=== PATIENT | male | born 1985 | race Caucasian/White ===

== ENCOUNTER 2020-08-24 19:53 | Emergency (ER) | payer OTHER, SELFPAY ==
[2020-08-24 20:04] VITALS: BP 137/93; PULSE 69; RESP 14; TEMP 36.7; O2SAT 99
--- NOTE | 2020-08-24 20:42 | ED.DIZZY ---
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 Patient was brought in via EMS, the police captain was searching home that was under suspicion for narcotics. MD elicited complaint: dizziness Severity: mild Exacerbating factors: nothing Relieving factors: nothing Related Data Home Medications Medication Instructions Recorded Confirmed No Home Medications 08/24/20 08/24/20 Allergies Allergy/AdvReac Type Severity Reaction Status Date / Time No Known Allergies Allergy Verified 08/24/20 20:02 Review of Systems Review of Systems: All systems reviewed & are unremarkable except as noted in HPI and below PMFSH Past Medical History Medical History Patient denies medical problems Social History Social History Gender identity (if verbalized by the patient): Male Sexual Orientation (if Verbalized by the Patient): Straight or Heterosexual Exam Const: General: no acute distress and alert Orientation/consciousness: patient oriented x3 HENMT: Head: normal to inspection Eyes: Conjunctivae: conjunctivae normal Pupils: Equal, round and reactive pupils present EOM: EOMs intact bilaterally Direct Ophthalmoscopy: no photophobia Neck: Neck: normal visual inspection, no lymphadenopathy and no meningeal signs Chest: Chest palpation & inspection: normal inspection of the chest Resp: Effort & Inspection: normal respiratory effort Auscultation: clear to auscultation bilaterally Cardio: Rate: regular rate Rhythm: regular rhythm GI: GI Palp: Yes Soft to palpation Percussion: Yes normal to percussion : Testes: Testes normal Urinary Catheter: Urinary Catheter: patent and draining Back/Spine/Pelvis: Back: no CVA tenderness Skin: General skin exam: normal color Rashes: no rashes Neuro: General: patient oriented x3, moves all extremities, no meningeal signs and no focal motor deficits Psych: Appearance: grossly normal Mental Status: mental status grossly normal Affect: normal affect Course Course Emergency Course: reassessment of patient continues to feel better with currently minimal dizziness with no nausea Vital Signs Vital signs: Vital Signs Temperature 36.7 C 08/24/20 20:04 Pulse Rate 69 08/24/20 20:04 Respiratory Rate 14 08/24/20 20:04 Blood Pressure 137/93 H 08/24/20 20:04 Pulse Oximetry 99 08/24/20 20:04 Temperature 36.7 C 08/24/20 20:04 Pulse Rate 69 08/24/20 20:04 Respiratory Rate 14 08/24/20 20:04 Blood Pressure 137/93 H 08/24/20 20:04 Pulse Oximetry 99 08/24/20 20:04 MDM - Dizziness Lab Data Labs: Lab Results 08/24/20 Range/Units 20:34 Urine Opiates Screen Pending Urine Methadone Screen Pending Ur Barbiturates Screen Pending Ur Phencyclidine Scrn Pending Ur Amphetamine Screen Pending U Benzodiazepines Scrn Pending Urine Cocaine Screen Pending U Cannabinoids Screen Pending Critical Care Time Critical Care Time Critical Care Time: No Discharge Plan Discharge Clinical Impression: Adverse reaction to drug Qualifiers: Encounter type: initial encounter Qualified Code(s): T50.905A - Adverse effect of unspecified drugs, medicaments and biological substances, initial encounter Patient Disposition: Home, Self-Care Condition: Stable Instructions: Antibiotic Form, Lightheadedness (ED) Additional Instructions: follow-up with primary care physician if symptoms persist or worsen. Prescriptions: No Action No Home Med
[2020-08-24 20:45] LABS: Amphetamine Screen Urine Negative (Negative); Barbiturate Screen Urine Negative (Negative); Benzodiazepines Screen Urine Negative (Negative); Cannabinoid Screen Urine Negative (Negative); Cocaine Screen Urine Negative (Negative); Methadone Screen Urine Negative (Negative); Opiate Screen Urine Negative (Negative); Phencyclidine Screen Urine Negative (Negative)
--- NOTE | 2020-08-24 20:48 | PC.NURSE ---
no change in pt condition. family at bedside
== END 2020-08-24 20:53 | disposition home or self-care (01) ==
PROVIDERS: Emergency Provider Emergency Medicine
DX: R42 Dizziness and giddiness (principal); T50.905A Adverse effect of unspecified drugs, medicaments and biological substances, initial encounter
CPT/HCPCS: 80307; 99282; 99283